=== PATIENT | female | born 1940 | race Caucasian/White ===

== ENCOUNTER 2016-11-17 12:12 | Emergency (ER) | payer MEDICARE ==
[2016-11-17] MEDS ORDERED: IOPAMIDOL 300 (61%) 150 ML VIAL IV ONE (12:13)
[2016-11-17] MEDS ORDERED: FENTANYL 100 MCG/2 ML VIAL ONE (13:09)
[2016-11-17] MEDS ORDERED: LACTATED RINGERS 1,000 ML ONE (13:09)
[2016-11-17 13:21] LABS: ABSOLUTE NEUTROPHIL COUNT 5.6 K/mm3 (1.8-7.7); BASO # 0.1 K/mm3 (0.0-0.2); BASO % 0.8 % (0.2-1.0); EOS # 0.1 (0.0-0.5); EOS % 1.1 % (0.9-2.9); HEMATOCRIT 38.4 % (37.0-47.0); HEMOGLOBIN 12.4 gm/l (12.0-16.0); IMM NEUT # 0.1 K/mm3 (0-0.2); IMM NEUT% 0.6 % (0-1); LYMPH # 2.1 (1.0-4.8); LYMPH % 23.9 % (15-45); MEAN CELL VOLUME 85.3 fl (81.0-99.0); MEAN CORPUSCULAR HEMOGLOBIN 27.6 pg (27.0-31.0); MEAN CORPUSCULAR HGB CONC 32.3 g/dl (33.0-37.0); MEAN PLATELET VOLUME 11.9 fl (7.4-10.4); MONO # 0.7 (0.0-0.8); MONO % 8.6 % (4-12); PLATELET COUNT 395 K/mm3 (130-400); RED CELL DISTRIBUTION WIDTH 15.1 % (11.5-14.5)
[2016-11-17 13:31] LABS: ALB/GLOB RATIO 1.2 (>1.0); ALBUMIN 3.7 gm/dL (3.5-5.7)
--- NOTE | 2016-11-17 14:07 | CT ---
Exam: CT abdomen and pelvis with contrast COMPARISON: Radiographs 12/30/2013 and 04/06/2011 INDICATION: Right lower quadrant pain. TECHNIQUE: CT examination of the abdomen and pelvis was obtained following the administration 125 mL Isovue-300 venous contrast. FINDINGS: Mild to moderate amount of stool is again appreciated within the colon. The appendix is well-visualized and normal. There is no bowel obstruction, free air or free intraperitoneal fluid. Urinary bladder is unremarkable. There is no pelvic lymphadenopathy or fluid collection. Uterus is present and unremarkable. There is no adnexal mass. Cholelithiasis. The liver, spleen, pancreas and adrenal glands are unremarkable. There is a slightly lobulated contour of the kidneys but there is no renal mass. There is no hydronephrosis. Large hiatal hernia/intrathoracic stomach. Lung bases are clear. Tiny fat-containing periumbilical hernia is noted. There is exaggeration of the normal lumbar lordosis with facet arthropathy within the lower lumbar spine where there is grade 1 anterolisthesis of L5 on S1. Degenerative disc disease is also present at the lumbosacral junction. Injection sites are noted within the subcutaneous tissues of anterior abdominal wall. Dystrophic calcifications are noted within the gluteal region. IMPRESSION: 1. No acute findings identified to explain right lower quadrant pain. 2. Cholelithiasis. 3. Large hiatal hernia/intrathoracic stomach. 4. Degenerative changes lumbar spine. Report was uploaded to the EMR at 1402 hours 11/17/2016.
[2016-11-17] MEDS ORDERED: SODIUM CHLORIDE 0.9% 500 ML ONE (14:28)
[2016-11-17] MEDS ORDERED: DEXTROSE 50%-WATER 25 G ONE (14:28)
[2016-11-17 14:59] LABS: SPECIFIC GRAVITY 1.015 (1.001-1.030); URINE APPEARANCE HAZY; URINE BILIRUBIN NEGATIVE (NEGATIVE); URINE BLOOD 3+ (NEGATIVE); URINE COLOR STRAW; URINE GLUCOSE (UA) NEGATIVE (NEGATIVE); URINE LEUKOCYTE ESTERASE 2+ (NEGATIVE); URINE NITRITE NEGATIVE (NEGATIVE); URINE PROTEIN 2+ (NEGATIVE); URINE UROBILINOGEN NORMAL (0-1 mg/dl)
[2016-11-17 15:09] LABS: URINE WBC 50-60 /hpf
[2016-11-17 15:10] LABS: URINE BACTERIA 2+; URINE EPITHELIAL CELLS 20-30 /hpf
--- NOTE | 2016-11-17 15:47 | US ---
EXAMINATION: Limited gallbladder ultrasound examination was performed. CLINICAL INDICATION: Right upper quadrant pain. COMPARISON: None FINDINGS: Gallbladder: 9.2 cm in length. Cholelithiasis: There is a shadowing calculus which appears freely mobile. This is also within significant amount of biliary sludge that is not shadowing. This echogenic focus measures 6 mm. Gallbladder wall thickness: 3 millimeters. Pericholecystic fluid: Absent Common bile duct: Within normal limits and measures 6 millimeters. Sonographic Yuan's sign: None elicited. IMPRESSION: Cholelithiasis with moderate biliary sludge. Gallbladder wall is at the upper limits of normal at 3 mm. Common bile duct is prominent at 6 mm. Findings maybe a reflection of early cholecystitis. Currently no significant gallbladder wall edema or pericholecystic fluid is identified.
== END 2016-11-17 17:15 | disposition home or self-care (01) ==
LOC: ED 12:12
DX: K80.20 Calculus of gallbladder without cholecystitis without obstruction (principal); R11.0 Nausea; E10.9 Type 1 diabetes mellitus without complications; Z79.4 Long term (current) use of insulin
CPT/HCPCS: 83605; 83690; 85025; 80053; 84484; 81001; 74177; 76705; 99284 ×2; 96374; 82962 ×4; 93005; J3010; J7120; J7040; Q9967

== ENCOUNTER 2017-01-10 10:38 | Day surgery (SDC) | payer MEDICARE ==
[2017-01-10] MEDS ORDERED: LIDOCAINE 2% (MULTI DOSE) 10 ML VIAL ONE (10:42)
[2017-01-10] MEDS ORDERED: PROPOFOL 0 ML IV ONE (10:42)
[2017-01-10] MEDS ORDERED: PROPOFOL 20 ML IV ONE (10:42)
[2017-01-10] MEDS ORDERED: FENTANYL 100 MCG/2 ML VIAL ONE ×3 (10:43→15:36)
[2017-01-10] MEDS ORDERED: MIDAZOLAM HCL 1 MG/ML 2ML VIAL ONE (10:43)
[2017-01-10] MEDS ORDERED: ROCURONIUM BROMIDE 10 MG/ML DOSE IV ONE ×5 (10:44→14:26)
[2017-01-10] MEDS ORDERED: CEFAZOLIN SODIUM 2 GRAM PREMIX 100 ML IV ONE (11:13)
[2017-01-10] MEDS ORDERED: SODIUM CHLORIDE 0.9% 1,000 ML ONE (11:13)
[2017-01-10] MEDS ORDERED: IV START KIT ONE (11:13)
[2017-01-10] MEDS ORDERED: INSULIN REGULAR HUMAN (DOSE) 100 UNITS/1 ML IV ONE ×2 (11:17→12:14)
[2017-01-10] MEDS ORDERED: SODIUM CHLORIDE 0.9% FLUSH 20 ML ONE ×2 (11:19→12:00)
[2017-01-10 11:30] LABS: HEMATOCRIT 37.1 % (37.0-47.0); MEAN CELL VOLUME 83.7 fl (81.0-99.0); MEAN CORPUSCULAR HEMOGLOBIN 27.1 pg (27.0-31.0); MEAN CORPUSCULAR HGB CONC 32.3 g/dl (33.0-37.0)
[2017-01-10] MEDS ORDERED: CEFAZOLIN SODIUM 2 GRAM PREMIX 100 ML IV PRN (11:45)
[2017-01-10] MEDS ORDERED: INSULIN REGULAR HUMAN (DOSE) 100 UNITS/1 ML ONE (11:59)
[2017-01-10] MEDS: INSULIN REGULAR HUMAN (DOSE) 100 UNITS/1 ML SUB-Q ONE ×2 (12:10→17:57)
[2017-01-10 12:12] LABS: ALB/GLOB RATIO 1.2 (>1.0); ALBUMIN 3.7 gm/dL (3.5-5.7)
[2017-01-10] MEDS ORDERED: D5NS 1,000 ML IV SCH ×2 (13:00→13:57)
[2017-01-10] MEDS ORDERED: BUPIVACAINE 0.5% W/EPI SDV 30 ML VIAL ONE (13:00)
[2017-01-10] MEDS ORDERED: IOPAMIDOL 300 (61%) 30 ML SDV ONE (13:00)
[2017-01-10] MEDS ORDERED: SODIUM CHLORIDE 0.9% 50 ML ONE (13:00)
[2017-01-10] MEDS ORDERED: ATROPINE SULFATE 0.4 MG/1 ML VIAL IV PRN (13:50)
[2017-01-10] MEDS ORDERED: NALOXONE HCL 0.4 MG/ML VIAL IV PRN (13:50)
[2017-01-10] MEDS ORDERED: ONDANSETRON 4 MG/2ML 2 ML VIAL IV PRN ×2 (13:50→16:34)
[2017-01-10] MEDS ORDERED: PROMETHAZINE HCL 25 MG/ML VIAL IM PRN (13:50)
[2017-01-10] MEDS ORDERED: METOCLOPRAMIDE HCL 5 MG/ML 2ML VIAL ONE (13:53)
[2017-01-10] MEDS ORDERED: SODIUM CHLORIDE 0.9% 1,000 ML IV SCH (14:00)
[2017-01-10] MEDS ORDERED: ESMOLOL HCL 10 MG/ML 10ML VIAL IV ONE (14:11)
[2017-01-10] MEDS ORDERED: LABETALOL HCL 5 MG/ML IV ONE (14:26)
[2017-01-10] MEDS ORDERED: NEOSTIGMINE METHYLSULFATE 1 MG/ML DOSE ONE ×3 (14:32)
[2017-01-10] MEDS ORDERED: SURGICEL 3X4 1 EACH PACKET ONE ×2 (14:49→15:34)
--- NOTE | 2017-01-10 15:13 | RAD ---
CHOLANGIOGRAM-OPERATIVE COMPARISON: Gallbladder ultrasound and CT abdomen and pelvis with contrast, 11/17/2016 HISTORY: Operative cholangiogram performed by Jose Perez MD. Cholelithiasis. Fluoroscopy time: 13.7 seconds. Contrast: Low osmolar. FINDINGS: Common bile duct: Normal. Intrahepatic bile ducts: Normal. Duodenum: Normal. IMPRESSION: 1. Normal operative cholangiogram.
[2017-01-10] MEDS ORDERED: LABETALOL HCL 5 MG/ML 20ML VIAL IV PRN (15:29)
[2017-01-10] MEDS: FENTANYL 100 MCG/2 ML VIAL IV PRN ×2 (15:38→15:45)
[2017-01-10] MEDS ORDERED: LABETALOL HCL 5 MG/ML 20ML VIAL IV ONE (15:52)
[2017-01-10] MEDS: HYDROMORPHONE HCL 1 MG/ML SYRINGE IV PRN ×2 (16:20→16:26)
[2017-01-10] MEDS ORDERED: HYDROMORPHONE HCL 1 MG/ML SYRINGE IV PRN (16:34)
[2017-01-10] MEDS ORDERED: ALBUTEROL SULFATE MDI 60 PUFFS/INHALER IH PRN (16:34)
[2017-01-10] MEDS ORDERED: FEXOFENADINE HCL 60 MG TABLET PO PRN (16:34)
[2017-01-10] MEDS ORDERED: CALCIUM POLYCARBOPHIL 625 MG TABLET PO PRN (16:34)
[2017-01-10] MEDS ORDERED: LACTATED RINGERS 1,000 ML IV SCH (16:34)
[2017-01-10] MEDS ORDERED: ACETAMINOPHEN 325 MG TABLET PO PRN (16:34)
--- NOTE | 2017-01-10 16:43 | CONS ---
LUIS CADENA [id number] HOSPITALIST CONSULATION DATE OF CONSULTATION: January 10, 2017 PHYSICIAN REQUESTING CONSULTATION: Jose Perez M.D. REASON FOR CONSULTATION: For assessment of preoperative hyperglycemia and assistance in perioperative management of the patient's medical problems. 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 SUMMARY OF ADMISSION AND HOSPITAL COURSE: Patient is a 76-year-old female who has presented today for an elective laparoscopic cholecystectomy. She had her first bout of right upper quadrant pain in November and has been following an extremely low fat diet since then without recurrent symptoms. Workup in the emergency department in November showed evidence of cholelithiasis and moderate biliary sludge but no bile duct dilatation on abdominal ultrasound. PREOPERATIVE REVIEW OF SYSTEMS: She has had no recent problems with fevers or chills. She has had no upper respiratory symptoms. She denies cough, dyspnea, wheezing, chest pain, shortness of breath or palpitations. She has had no further abdominal pain. She denies diarrhea or constipation. She has had no arthralgias, no headaches, fainting, blackouts or seizures. No urinary complaints. Review of systems is otherwise negative. PAST MEDICAL HISTORY: Significant for: 1. Biliary colic on November 17, 2016 evaluated in the emergency department as mentioned above. 2. She has a history of insulin dependent diabetes managed by Dr. Wiley complicated by some diabetic neuropathy. She has had the diagnosis for over 45 years and has no history of any retinopathy or nephropathy. 3. She has had a history of chronic essential hypertension. 4. She has had a history of cerebrovascular disease with recurrent transient ischemic attacks currently stable on Plavix. 5. She has had some carotid arterial disease. 6. She has a history of iron deficiency anemia requiring Venofer infusions. 7. She also has B12 injections monthly. 8. She has had a history of some gastroesophageal reflux disease stable on medications. 9. Fibromyalgia syndrome with some chronic pain. 10. Some degenerative disc disease in the neck as well with neck pain. 11. She has had no recent hospitalizations. (From this point until allergies, the dictation was skipping every other word and was impossible to transcribe.) PAST SURGICAL HISTORY: Not able to transcribe. ALLERGIES: REPORTED TO: 1. MORPHINE WHICH CAUSES A RASH. 2. SULFA MEDICATIONS. 3. PREDNISONE IS ALSO LISTED AN ALLERGY. 4. SHE REPORTS INTOLERANCE TO LORAZEPAM WHICH CAUSES PARANOIA. CURRENT MEDICATIONS: 1. Metamucil one packet daily as needed for fiber supplementation. 2. She takes a probiotic one daily. 3. MiraLax 17 g daily for constipation. 4. Prilosec 20 mg daily. 5. Metformin 1000 mg twice daily. 6. Humalog insulin correct scale before meals and at bedtime. See the HR. This is a very specific customized correction scale. 7. She takes Humalog insulin scheduled 10 units before breakfast and 5 units before lunch and dinner plus the correction scale. 8. She takes Lantus insulin 40 units subcutaneous in the morning, although she took half a dose this morning. 9. She takes Neurontin 200 mg at bedtime. 10. Shefali 60 mg daily as needed for allergies. 11. Cyanocobalamine 1000 mg every month on the . 12. Plavix 75 mg daily. The last dose was taken on January 04, 2017. 13. Vitamin D3 2000 units daily. 14. Calcium citrate with vitamin D one tablet daily. 15. Lipitor 80 mg at bedtime. 16. Amitriptyline 25 mg at bedtime. 17. Albuterol two puffs inhaled every four hours as needed for wheezing. 18. Tylenol 500 mg twice daily as needed for pain. FAMILY HISTORY: Positive for diabetes in both parents. SOCIAL HISTORY: She lives independently with her just outside of [place]. She is retired. She is independent with her activities of daily living. She has two grown children. Her daughter is a nurse. Her son is a dentist. She denies tobacco use. She drinks a couple of glasses of wine a week. Her primary care provider is Dr. Muller. Her news camera person is Dr. Gal Wiley. PHYSICAL EXAMINATION: VITAL SIGNS: Vital signs are stable. Body mass index is 38.0 and weight is 113 kilograms when last checked. GENERAL: This is an obese, elderly female in no acute distress. HEENT: Shows moist, pink oral mucosa. Pupils are equal, round and reactive to light. Extraocular movements are intact. NECK: Supple without lymphadenopathy or thyromegaly. CHEST: Clear to auscultation bilaterally. HEART: Regular rate and rhythm without a murmur. ABDOMEN: Soft, nontender, nondistended with positive bowel sounds. PELVIC: Exam is deferred. RECTAL: Exam is deferred. EXTREMITIES: Showed trace lower extremity edema in the right leg. NEUROLOGIC: Exam shows some decreased sensation involving the lateral aspect of the right foot especially toes 4 and 5 as well as some peripheral neuropathy. DIAGNOSTIC IMAGING STUDIES: Included: 1. Obstructive series performed on January 06, 2017 showing no acute abnormality. 2. She had the CT of the abdomen and abdominal ultrasound showing cholelithiasis on November 17, 2016. PREOPERATIVE LABORATORY STUDIES: She had labs done today showing a sodium of 137, potassium 4.6, BUN 21, creatinine 1.1, glucose 360. CBC shows a white of 7.1, hemoglobin of 12.0 and a platelet count of 318,000. Patient's glucose has since been reduced down to 132 after two doses of IV insulin given in the short stay unit. ASSESSMENT/PLAN: Patient has: 1. Chronic cholecystitis with biliary colic. She will undergo a laparoscopic cholecystectomy by Dr. Perez today. I think she is low surgical risk. 2. She has type 1 diabetes with hyperglycemia. She reports she gets neurologic symptoms if her blood sugars get much higher than 200. Based on her and her family's concerns, we may consider a postoperative insulin drip if her sugars are running high. I generally would not be too concerned about blood sugars in this range except based on the patient's history. 3. She has chronic essential hypertension and should be able to resume her usual antihypertensive medications postoperatively depending on her blood sugars. 4. She has a history of cerebrovascular disease, not otherwise specified, currently stable. 5. History of iron deficiency anemia, currently stable with a hemoglobin of 12. 6. The hospitalist service will follow the patient postoperatively until she is discharged to assist with management of the patient's glucose levels and the other medical problems that come up. cc: Steven Muller D.O. Gal Wiley M.D.
[2017-01-10 16:54] VITALS: BMI 38.0
[2017-01-10] MEDS ORDERED: HYDROMORPHONE HCL 0.5 MG/0.5 ML SYRINGE IV PRN (16:56)
[2017-01-10] MEDS ORDERED: INSULIN ASPART (DOSE) 100 UNITS/1 ML SUB-Q SCH ×2 (17:00→18:00)
[2017-01-10] MEDS ORDERED: PUMP TUBING ONE (17:16)
[2017-01-10] MEDS ORDERED: ATORVASTATIN CALCIUM 40 MG TABLET PO SCH (20:00)
[2017-01-10] MEDS: INSULIN ASPART (DOSE) 100 UNITS/1 ML SUB-Q SCH ×2 (20:19→22:27)
[2017-01-10] MEDS: OXYCODONE HCL 5 MG TABLET PO PRN (20:20)
[2017-01-10] MEDS ORDERED: AMITRIPTYLINE HCL 50 MG TABLET PO SCH (21:00)
[2017-01-10] MEDS ORDERED: GABAPENTIN 100 MG CAPSULE PO SCH (21:00)
[2017-01-10] MEDS ORDERED: INSULIN DETEMIR 100 UNITS/ML VIAL SUB-Q SCH (21:45)
[2017-01-10] MEDS ORDERED: INSULIN GLARGINE (DOSE) 100 UNITS/ML UNIT SUB-Q ONE (22:11)
[2017-01-10] MEDS ORDERED: INSULIN ASPART (DOSE) 100 UNITS/1 ML SUB-Q ONE (22:41)
[2017-01-11 06:19] LABS: HEMATOCRIT 30.7 % (37.0-47.0); MEAN CELL VOLUME 85.3 fl (81.0-99.0); MEAN CORPUSCULAR HEMOGLOBIN 27.8 pg (27.0-31.0); MEAN CORPUSCULAR HGB CONC 32.6 g/dl (33.0-37.0); RED CELL DISTRIBUTION WIDTH 14.3 % (11.5-14.5)
[2017-01-11 06:23] LABS: ALB/GLOB RATIO 1.2 (>1.0)
[2017-01-11] MEDS: INSULIN ASPART (DOSE) 100 UNITS/1 ML SUB-Q SCH (08:26)
[2017-01-11] MEDS ORDERED: VITAMIN D3 1,000 UNITS CAP.LIQ PO SCH (09:00)
[2017-01-11] MEDS ORDERED: L.ACIDOPH,SAL/B.BIF/S.THER 175 MG 1 CAP PO SCH (09:00)
[2017-01-11] MEDS ORDERED: INSULIN GLARGINE (DOSE) 100 UNITS/ML UNIT SUB-Q SCH (09:00)
[2017-01-11] MEDS ORDERED: CALCIUM CARBONATE 600 MG/VITAMIN D3 400 UNIT/TABLET PO SCH (09:00)
[2017-01-11] MEDS ORDERED: INSULIN ASPART (DOSE) 100 UNITS/1 ML SUB-Q SCH ×2 (09:00→13:00)
[2017-01-11] MEDS ORDERED: PANTOPRAZOLE 40 MG TABLET DR PO SCH (09:00)
[2017-01-11] MEDS: OXYCODONE HCL 5 MG TABLET PO PRN (10:05)
[2017-01-11 11:04] VITALS: BP 133/62
[2017-01-11] MEDS ORDERED: BISACODYL 10 MG SUP PR ONE (12:19)
--- NOTE | 2017-01-11 12:24 | PDOC43 ---
- Subjective Subjective: Reports Pain Tolerable, Reports Distention, Denies Flatus, Denies Nausea - Objective Vital Signs Temperature 97.7 F 01/11/17 11:03 Pulse Rate 85 01/11/17 11:03 Respiratory Rate 18 01/11/17 11:03 Blood Pressure 133/62 01/11/17 11:03 O2 Saturation by Pulse Oximetry 96 01/11/17 11:03 Oxygen Delivery Method Room Air Oxygen Flow Rate 0 Laboratory 01/11/17 05:30 01/11/17 05:30 01/11/17 01/11/17 01/10/17 08:14 05:30 22:09 RBC 3.60 L MCHC 32.6 L Estimated GFR 54 L POC Capillary Glucose 282 H 305 H Calcium 8.0 L AST 43 H Total Protein 5.6 L Albumin 3.0 L 01/10/17 01/10/17 01/10/17 20:05 17:10 15:26 RBC MCHC Estimated GFR POC Capillary Glucose 327 H 208 H 172 H Calcium AST Total Protein Albumin 01/10/17 01/10/17 01/10/17 14:59 14:34 13:52 RBC MCHC Estimated GFR POC Capillary Glucose 170 H 196 H 135 H Calcium AST Total Protein Albumin 01/10/17 12:54 RBC MCHC Estimated GFR POC Capillary Glucose 132 H Calcium AST Total Protein Albumin Active Medication Orders Category Date Time Status Acetaminophen [Tylenol] Med 01/10/17 16:34 Active 650 mg PO Q6H PRN Albuterol Sulfate Mdi [Ventolin Hfa Mdi] Med 01/10/17 16:34 Active 2 puffs IH Q4H PRN Amitriptyline HCl [Elavil] Med 01/10/17 21:00 Active 50 mg PO BEDTIME Atorvastatin Calcium [Lipitor] Med 01/10/17 20:00 Active 80 mg PO QPM Bisacodyl [Dulcolax] Med 01/11/17 12:19 Once 10 mg MT X1 ONE Calcium Carbonate/Vitamin D3 Med 01/11/17 09:00 Active 1 each PO DAILY Calcium Polycarbophil [Fibercon] Med 01/10/17 16:34 Active 625 mg PO DAILY PRN Cyanocobalamin [Vitamin B-12] Med 01/27/17 16:34 Active 1,000 mcg IM Q30D Fexofenadine HCl [Shefali] Med 01/10/17 16:34 Pending 60 mg PO DAILY PRN Gabapentin [Neurontin] Med 01/10/17 21:00 Active 200 mg PO BEDTIME Hydromorphone HCl [Dilaudid] Med 01/10/17 16:34 Active 0.5 - 1 mg IV Q1H PRN Hydromorphone HCl [Dilaudid] Med 01/10/17 16:56 Active 0.5 - 1 mg IV Q1H PRN Insulin Aspart (Dose) [Novolog (Dose)] Med 01/10/17 21:00 Active 0 - 18 units SUB-Q ACBEDTIME Insulin Aspart (Dose) [Novolog (Dose)] Med 01/11/17 09:00 Active 10 units SUB-Q DAILY@0900 Insulin Aspart (Dose) [Novolog (Dose)] Med 01/11/17 13:00 Active 5 units SUB-Q DAILY@1300 Insulin Aspart (Dose) [Novolog (Dose)] Med 01/10/17 18:00 Active 5 units SUB-Q DAILY@1800 Insulin Glargine (Dose) [Lantus (Dose)] Med 01/11/17 09:00 Active 40 units SUB-Q QAM L.acidoph,Kole/B.bif/S.ther 175 [Probiotic Blend 175 mg Med 01/11/17 09:00 Active Cap] 1 cap PO DAILY Labetalol HCl [Trandate] Med 01/10/17 15:29 Active 10 mg IV Q1H PRN Lactated Ringers 1,000 ml Med 01/10/17 16:34 Active IV 75 mls/hr Ondansetron 4 mg/2ml Vial [Zofran] Med 01/10/17 16:34 Active 4 mg IV Q6H PRN Oxycodone HCl [Roxicodone] Med 01/10/17 16:34 Active 5 - 10 mg PO Q4H PRN Pantoprazole Sodium [Protonix] Med 01/11/17 09:00 Active 40 mg PO DAILY Sodium Chloride 0.9% Flush [Normal Saline 10ml Flush] Med 01/10/17 17:27 Active 10 ml IV PRN PRN Sodium Chloride 0.9% Flush [Normal Saline 10ml Flush] Med 01/11/17 01:00 Active 10 ml IV Q8HR Vitamin D3 Med 01/11/17 09:00 Active 2,000 units PO DAILY Intake and Output 01/10/17 01/11/17 01/12/17 06:59 06:59 06:59 Intake Total 2300 900 Output Total 50 900 Balance 2250 0 General: Alert, Oriented x3 Abdomen: Soft, Mild Distention Psych/Mental Status: Normal Affect - Assessment/ Plan (1) Calculus of gallbladder with chronic cholecystitis without obstruction Status: AcuteAssessment/ Plan: Give dulcolox suppository with some abdominal distension. Home today if passing gas. (2) Diabetes type 2, controlled Status: ChronicAssessment/ Plan: Appreciate hospitalist input. Discussed with them and she should be able to go home on usual regimen.
--- NOTE | 2017-01-11 14:01 | OP ---
Angela Anderson [id number] DATE OF PROCEDURE: 01/10/2017 PREOPERATIVE DIAGNOSIS: Chronic cholecystitis with cholelithiasis. POSTOPERATIVE DIAGNOSIS: Chronic cholecystitis with cholelithiasis. PROCEDURE: Laparoscopic cholecystectomy with intraoperative cholangiogram. SURGEON: Jose Perez M.D. CELLOPHANE WORKER: [place]. ANESTHESIA: Jef, General endotracheal. INDICATION: This is a 76-year-old female who had symptoms of chronic biliary colic. She has ultrasound evidence of cholelithiasis. She presents for elective cholecystectomy. DESCRIPTION: With informed consent she was taken to the operating room where she was laid supine on the operating room table. General endotracheal anesthetic was administered. The abdomen was prepped and draped in the usual fashion. She did have a long obese abdomen. I decided to place my first port above the umbilicus. A vertical incision was made. We dissected down to the fascia. Sutures of Surgilon were placed in the fascia and then it was opened in the midline using curved Tirado scissors. A Gamble port was placed. A pneumoperitoneum was created. Local anesthetic was administered in the epigastrium and along the right abdominal wall, incisions were made, 5 mm ports were placed. There were adhesions to the gallbladder of omentum, this was taken down with electrocautery. I did have to aspirate bile from the gallbladder to allow it to be grasped. Eventually the fundus of the gallbladder was grasped and retracted cephalad. The infundibulum was retracted laterally until the cystic duct was identified and dissected free circumferentially. A critical view was obtained of the cystic duct gallbladder junction. A clip was placed. The duct was partially transected. A cholangiogram was obtained showing flow of contrast into the duodenum without filling defect. Contrast was seen refluxing up into the hepatic ducts. The catheter was removed. Two clips were placed on the cystic duct stump and was completed transected. Next, the cystic artery was identified, this was fairly small, clips were placed, and it was transected. The gallbladder was taken off the liver bed using electrocautery. It was moderately intrahepatic. There was a moderate amount of oozing. Once the gallbladder was it was placed in an Endocatch bag and removed through the umbilical port site. I did have to cauterize the entire liver bed. Despite this there was still some oozing and I placed some Surgicel over that. With that we appeared to have good hemostasis with no residual signs of bleeding. The ports were removed and the pneumoperitoneum was evacuated. The supraumbilical fascial defect was closed with figure of eight sutures of 0 Surgilon. The fascial defects were small. The skin was closed with subcuticular 4-0 Monocryl. Mastisol and Steri-Strips were placed. Sterile dressings were applied. She tolerated the procedure and was taken to the recovery room in stable condition. Note was made that needle, instrument, and lap counts were reported as correct at the time of closure. JOB: [id number] CC: Dr. Steven Muller
--- NOTE | 2017-01-12 10:40 | SURGPATH ---
[facility] [address] [place] [id number] Patient Name: LUIS CADENA MR#: [id number] : 1940 Gender: F Specimen #: [id number] Collected: 01/10/2017 Received: 01/11/2017 Reported: 01/12/2017 Submitting Phys: ECHO MC Copy To Phys: [facility] CHERRI PALMER Clinical History / Pre-Operative Diagnosis: Chronic cholecystitis with cholelithiasis Specimen Source / Surgical Procedure Performed: Gallbladder Interpretation: GALLBLADDER, CHOLECYSTECTOMY: - CHRONIC CHOLECYSTITIS WITH CHOLELITHIASIS Electronically Signed Out Christian Morataya M.D. Gross Description: The specimen is received in a formalin filled container labeled with the patient's name and "gallbladder". A previously incised but engorged gallbladder is 7.5 x 3 cm. The campa serosa has focal surface adhesions. The wall averages 0.3 cm. The mucosa is campa and velvety. There is no nodule or induration. The lumen contains a copious amount of thick, opaque green-brown bile and several irregular black calculi up to 0.3 cm. Three union contract representative sections are submitted in one cassette including a cross section through the cystic duct surgical margin, a central cross section and a longitudinal section through the fundus. Dane Parekh Microscopic Description: The sections show thickened gallbladder wall with chronic inflammation within the lamina propria. 1: [id number] K80.45
[2017-01-27] MEDS ORDERED: CYANOCOBALAMIN 1,000 MCG/ML VIAL IM SCH (16:34)
== END 2017-01-11 15:35 | disposition home or self-care (01) ==
LOC: SDC 10:38 → MS 16:43 → SDC 01-11 15:35
PROVIDERS: ATTEND Surgery
PROC: 0FT44ZZ Resection of Gallbladder, Percutaneous Endoscopic Approach (ICD-10-PCS; principal; 2017-01-10)
PROC: BF141ZZ Fluoroscopy of Gallbladder, Bile Ducts and Pancreatic Ducts using Low Osmolar Contrast (ICD-10-PCS; 2017-01-10)
DX: K80.10 Calculus of gallbladder with chronic cholecystitis without obstruction (principal); E10.42 Type 1 diabetes mellitus with diabetic polyneuropathy; Z79.01 Long term (current) use of anticoagulants; Z79.82 Long term (current) use of aspirin; Z86.73 Personal history of transient ischemic attack (TIA), and cerebral infarction without residual deficits; J45.909 Unspecified asthma, uncomplicated; K58.9 Irritable bowel syndrome, unspecified; E66.09 Other obesity due to excess calories; Z68.38 Body mass index [BMI] 38.0-38.9, adult; Z79.4 Long term (current) use of insulin; Z79.84 Long term (current) use of oral hypoglycemic drugs; Z88.5 Allergy status to narcotic agent; Z88.2 Allergy status to sulfonamides; Z88.8 Allergy status to other drugs, medicaments and biological substances; I10 Essential (primary) hypertension; I67.9 Cerebrovascular disease, unspecified; D50.9 Iron deficiency anemia, unspecified; M79.7 Fibromyalgia; G89.29 Other chronic pain
CPT/HCPCS: 85027 ×2; 80053 ×2; 36415; 74300; 94010; 47563; J1170; A9270 ×10; J3010 ×3; J2765; J2250; J2405; J7042; J7120; J7030 ×2; J1815 ×9; Q9967; J2001; J0690

== ENCOUNTER 2017-02-26 12:25 | Emergency (ER) | payer MEDICARE ==
[2017-02-26] MEDS ORDERED: IOPAMIDOL 300 (61%) 150 ML VIAL IV ONE (12:26)
[2017-02-26] MEDS ORDERED: ONDANSETRON 4 MG/2ML 2 ML VIAL ONE ×2 (12:38→12:52)
[2017-02-26] MEDS ORDERED: SODIUM CHLORIDE 0.9% 500 ML ONE (12:48)
[2017-02-26] MEDS ORDERED: DEXTROSE 50%-WATER 25 G ONE (12:52)
[2017-02-26 12:59] LABS: ABSOLUTE NEUTROPHIL COUNT 8.1 K/mm3 (1.8-7.7); BASO # 0.1 K/mm3 (0.0-0.2); BASO % 0.7 % (0.2-1.0); EOS # 0.1 (0.0-0.5); EOS % 0.9 % (0.9-2.9); HEMATOCRIT 36.1 % (37.0-47.0); HEMOGLOBIN 11.2 gm/l (12.0-16.0); IMM NEUT% 0.4 % (0-1); LYMPH # 1.9 (1.0-4.8); LYMPH % 17.1 % (15-45); MEAN CELL VOLUME 84.7 fl (81.0-99.0); MEAN CORPUSCULAR HEMOGLOBIN 26.3 pg (27.0-31.0); MEAN PLATELET VOLUME 12.1 fl (7.4-10.4); MONO % 8.6 % (4-12); NEUT % 72.3 % (43-75); PLATELET COUNT 374 K/mm3 (130-400); RED CELL DISTRIBUTION WIDTH 14.8 % (11.5-14.5)
[2017-02-26] MEDS ORDERED: DEXTROSE 10% 1,000 ML IV ONE (13:00)
[2017-02-26 13:14] LABS: ALB/GLOB RATIO 1.2 (>1.0); ALBUMIN 3.7 gm/dL (3.5-5.7)
[2017-02-26 13:15] LABS: TROPONIN I 0.02 ng/ml (0.0-0.06)
[2017-02-26 13:19] LABS: CKMB ISOENZYME 1.9 ng/ml (0.6-6.3)
--- NOTE | 2017-02-26 15:03 | CT ---
ABD/PELVIS W/ CON COMPARISON: Acute abdomen series, 01/06/2017. CT abdomen and pelvis 11/17/2016 HISTORY: The patient is recovering from gallbladder surgery 1 month ago and today became hypoglycemic. Technique: No oral contrast. Intravenous injection 125 mL Isovue 370. Using a [employer] Aquilion [address] scanner, images were obtained from the diaphragm to the floor the pelvis. An automated dose reduction technique was used to minimize patient radiation dose. Dose information: CTDIvol (mGy): 24.80 DLP(mGycm): 1300.30 FINDINGS: Lung bases: Normal. Inferior mediastinum and heart: Large hiatal hernia. Liver: Normal. Gallbladder: Status post cholecystectomy with a 3.0 x 2.7 cm fluid collection at the surgical site. Bile ducts: Normal. Pancreas: Atrophy. Spleen: Normal. Adrenal glands: Normal. Kidneys: Normal. Ureters: Normal Urinary bladder: Normal. Uterus and adnexa: Normal. Blood vessels: Normal Lymph nodes: Normal Stomach: Large hiatal hernia. Duodenum: Normal Small intestine: Normal Appendix: Normal Colon: Normal Abdominal wall and supporting musculature: Normal Bones: .Degenerative anterolisthesis of L4. L5-S1 severe disc narrowing and vacuum phenomenon. IMPRESSION: 1. 3.0 x 2.7 cm fluid collection at the cholecystectomy surgical site. No evidence of active bile leak. 2. Incidental findings include large hiatal hernia, atrophy of the pancreas, and degenerative changes of lumbar spine. The results were discussed with Joseph Balbuena M.D. 02/26/2017 at 14:58
--- NOTE | 2017-02-26 15:05 | RAD ---
CHEST - 2 VIEWS COMPARISON: Chest one view, 03/04/2015 HISTORY: Hypoglycemia. FINDINGS: Views: Frontal and lateral chest Lungs: Normal Heart and vessels: Normal Trachea and bronchi: Normal Mediastinum and shari: Large hiatal hernia containing air-fluid level. Costophrenic sulci: Normal Chest wall and bones: Normal. Upper abdomen: Normal. IMPRESSION: Large hiatal hernia containing an air-fluid level.
== END 2017-02-26 15:23 | disposition home or self-care (01) ==
LOC: ED 12:25
DX: E10.649 Type 1 diabetes mellitus with hypoglycemia without coma (principal); Z79.4 Long term (current) use of insulin; Z79.84 Long term (current) use of oral hypoglycemic drugs; T81.89XA Other complications of procedures, not elsewhere classified, initial encounter; Z86.73 Personal history of transient ischemic attack (TIA), and cerebral infarction without residual deficits; K21.9 Gastro-esophageal reflux disease without esophagitis; M79.7 Fibromyalgia; Z79.899 Other long term (current) drug therapy; Z88.5 Allergy status to narcotic agent; Z88.2 Allergy status to sulfonamides; Z88.8 Allergy status to other drugs, medicaments and biological substances; Z91.048 Other nonmedicinal substance allergy status; Z90.49 Acquired absence of other specified parts of digestive tract